=== PATIENT | male | born 1965 | race Caucasian/White ===

== ENCOUNTER 2018-05-10 08:03 | Emergency (ER) | payer BC, SELFPAY ==
[2018-05-10 08:07] VITALS: BP 110/65; PULSE 79; RESP 15; TEMP 37; O2SAT 99
--- NOTE | 2018-05-10 08:26 | DI.RAD_ITS ---
SYMPTOM/DIAGNOSIS: RT MIDDLE TOE BRUISE, PAIN RIGHT FOOT: Three views were obtained. No fracture is seen.
--- NOTE | 2018-05-10 08:27 | W.ED.GENAD ---
Discharge Plan Disposition Patient Disposition: HOME Condition: Good Discharge Details Chief Complaint: Orthopedic Clinical Impression: Bruise, Fracture of toe Primary Care Provider: None,None ED Provider: Denny Santiago Home Meds and New Rx's Prescriptions: No Action No Known Home Meds RF: 0 Discharge Instructions Instructions: Toe Fracture (ED), Contusion in Adults (ED) Referrals: [facility] Emergency Dept. [Outside] - Return if symptoms worsen Discharge Data Discharge Date/Time-TO BE ENTERED AT DEPARTURE: 05/10/18 09:21 Medical Decision Making Differential would be bruising from friction or burn from the warmers, paronychia, banuelos bite, cellulitis, gout, fracture? I am leaning toward paronychia. We will x-ray to confirm no fracture. I reviewed x-rays with Lance. I disagree with V-rad and advised to treat as fracture. He is off for the week and plans to rest and elevate the toe. Advised to return if signs of infections develop. Imaging Data Radiologic Study: Imaging: X-Ray My impression: Fracture to medial corner of PIP of the third toe. Radiologist's impression: v-rad: No acute findings. HPI General Date/Time Provider Initiated Documentation: 05/10/18 08:26. History of Present Illness 52 year old M presents to the emergency department with the chief complaint of toe pain, HPI Narrative: 52 y/o male here with c/o right toe pain and discoloration. He noticed right middle toe pain last night. He was out hunting yesterday but was plenty warm with quality socks and toe warmers. Denies any trauma. is concerned about infection. This morning discolored blue and painful to touch. Denies any history of gout. Related Data Home Medications Medication Instructions Recorded Confirmed Unknown [No Known Home Meds] 05/10/18 05/10/18 Allergies Allergy/AdvReac Type Severity Reaction Status Date / Time No Known Allergies Allergy Unverified 05/10/18 08:12 General Stated Complaint: Orthopedic SANDRA: 4 Review of Systems Musculoskeletal Comments: Right toe pain PFSH Social History Smoking/Tobacco Use Status: Never Exam Const General: cooperative, healthy appearing, comfortable and no acute distress HENMT Head: normal to inspection Ears: hearing grossly normal bilaterally and external ears normal General nose exam: external nose normal and nares normal Eyes General: appearance normal, both eyes and all related structures Neck Neck: normal visual inspection Extrem General: full ROM, normal capillary refill and no calf tenderness Right lower extremity: full ROM (with pain to right middle toe. ), normal capillary refill, ankle Details: normal to inspection; no tenderness and no swelling and foot Details: normal capillary refill, abnormal to inspection Details: other (bruising at the distal end of the third metatarsal and extends down the toe. ) and ecchymosis (third or middle toe) Ankle/foot/toe images: 1. Dorsal side of toe is bruised. Bruising starts at middle section of the phalanx. Distal nail and tip of toe is normal color. At the base of the toe nail their is a circular blister that is intact. No redness. It is painful to touch. No drainage. Psych Appearance: grossly normal Mental Status: mental status grossly normal Speech and Movement: speech and movement normal Mood: congruent mood Affect: normal affect Attitude: cooperative Thought Process: normal Insight: insight good Judgment: judgment good Course Vital Signs Temperature 37 C 05/10/18 08:07 Pulse 79 05/10/18 08:07 Respiratory Rate 15 05/10/18 08:07 Blood Pressure 110/65 05/10/18 08:07 Pulse Oximetry 99 05/10/18 08:07 Temperature 37 C 05/10/18 08:07 Temperature Source Temporal Artery Scan 05/10/18 08:07 Pulse 79 05/10/18 08:07 Respiratory Rate 15 05/10/18 08:07 Respiratory Effort Non-Labored 05/10/18 08:11 Blood Pressure 110/65 05/10/18 08:07 Blood Pressure Position Sitting 05/10/18 08:07 Pulse Oximetry 99 05/10/18 08:07 Oxygen Delivery Method Room Air 05/10/18 08:07 Oxygen Flow Rate 0 05/10/18 08:07 Pain Level 4 05/10/18 08:12
--- NOTE | 2018-05-10 08:41 | ED.GENADUL_ITS ---
Discharge Plan Disposition Patient Disposition: HOME Condition: Good Discharge Details Chief Complaint: Orthopedic Clinical Impression: Bruise, Fracture of toe Primary Care Provider: None,None ED Provider: Denny Santiago Home Meds and New Rx's Prescriptions: No Action No Known Home Meds RF: 0 Discharge Instructions Instructions: Toe Fracture (ED), Contusion in Adults (ED) Referrals: [facility] Emergency Dept. [Outside] - Return if symptoms worsen Discharge Data Discharge Date/Time-TO BE ENTERED AT DEPARTURE: 05/10/18 09:21 Medical Decision Making Differential would be bruising from friction or burn from the warmers, paronychia, banuelos bite, cellulitis, gout, fracture? I am leaning toward paronychia. We will x-ray to confirm no fracture. I reviewed x-rays with Lance. I disagree with V-rad and advised to treat as fracture. He is off for the week and plans to rest and elevate the toe. Advised to return if signs of infections develop. Imaging Data Radiologic Study: Imaging: X-Ray My impression: Fracture to medial corner of PIP of the third toe. Radiologist's impression: v-rad: No acute findings. HPI General Date/Time Provider Initiated Documentation: 05/10/18 08:26 . History of Present Illness 52 year old M presents to the emergency department with the chief complaint of toe pain, HPI Narrative: 52 y/o male here with c/o right toe pain and discoloration. He noticed right middle toe pain last night. He was out hunting yesterday but was plenty warm with quality socks and toe warmers. Denies any trauma. is concerned about infection. This morning discolored blue and painful to touch. Denies any history of gout. Related Data Home Medications Medication Instructions Recorded Confirmed Unknown [No Known Home Meds] 05/10/18 05/10/18 Allergies Allergy/AdvReac Type Severity Reaction Status Date / Time No Known Allergies Allergy Unverified 05/10/18 08:12 General Stated Complaint: Orthopedic SANDRA: 4 Review of Systems Musculoskeletal Comments: Right toe pain PFSH Social History Smoking/Tobacco Use Status: Never Exam Const General: cooperative, healthy appearing, comfortable and no acute distress HENMT Head: normal to inspection Ears: hearing grossly normal bilaterally and external ears normal General nose exam: external nose normal and nares normal Eyes General: appearance normal, both eyes and all related structures Neck Neck: normal visual inspection Extrem General: full ROM, normal capillary refill and no calf tenderness Right lower extremity: full ROM (with pain to right middle toe. ), normal capillary refill, ankle Details: normal to inspection; no tenderness and no swelling and foot Details: normal capillary refill, abnormal to inspection Details: other (bruising at the distal end of the third metatarsal and extends down the toe. ) and ecchymosis (third or middle toe) Ankle/foot/toe images: 2 1. Dorsal side of toe is bruised. Bruising starts at middle section of the phalanx. Distal nail and tip of toe is normal color. At the base of the toe nail their is a circular blister that is intact. No redness. It is painful to touch. No drainage. Psych Appearance: grossly normal Mental Status: mental status grossly normal Speech and Movement: speech and movement normal Mood: congruent mood Affect: normal affect Attitude: cooperative Thought Process: normal Insight: insight good Judgment: judgment good Course Vital Signs Temperature 37 C 05/10/18 08:07 Pulse 79 05/10/18 08:07 Respiratory Rate 15 05/10/18 08:07 Blood Pressure 110/65 05/10/18 08:07 Pulse Oximetry 99 05/10/18 08:07 Temperature 37 C 05/10/18 08:07 Temperature Source Temporal Artery Scan 05/10/18 08:07 Pulse 79 05/10/18 08:07 Respiratory Rate 15 05/10/18 08:07 Respiratory Effort Non-Labored 05/10/18 08:11 Blood Pressure 110/65 05/10/18 08:07 Blood Pressure Position Sitting 05/10/18 08:07 Pulse Oximetry 99 05/10/18 08:07 Oxygen Delivery Method Room Air 05/10/18 08:07 Oxygen Flow Rate 0 05/10/18 08:07 Pain Level 4 05/10/18 08:12
--- NOTE | 2018-05-10 08:56 | DI.VRAD_ITS ---
EXAM: XR Right Foot Complete, 3 or more Views EXAM DATE/TIME: 05/10/2018 8:28 AM CLINICAL HISTORY: 52 years old, male; Signs and symptoms; Other: Right middle toe brusied and p; Patient HX: Right middle toe brused and painful TECHNIQUE: XR Right foot 3 or more views. COMPARISON: No relevant prior studies available. FINDINGS: Bones/joints: Normal.There is no evidence of acute fracture.There is no evidence of malalignment or dislocation. Soft tissues: Normal. IMPRESSION: No acute findings. Dictated and Authenticated by: Elo Rousseau MD. Ordering:DEE PALACIOS MD
== END 2018-05-10 09:21 | disposition home or self-care (01) ==
PROVIDERS: Emergency Provider Nurse Practitioner Family
DX: S92.521A Displaced fracture of middle phalanx of right lesser toe(s), initial encounter for closed fracture (principal); X58.XXXA Exposure to other specified factors, initial encounter
CPT/HCPCS: 28510; 73630

== ENCOUNTER 2023-12-31 07:30 | Emergency (ER) | payer BC, SELFPAY ==
[2023-12-31 07:39] VITALS: BP 113/67; PULSE 77; RESP 20; TEMP 36; O2SAT 97
--- NOTE | 2023-12-31 07:51 | W.ED.GENAD ---
Discharge Plan Disposition Patient Disposition: Home Condition: Good Discharge Details Clinical Impression: Hand laceration Primary Care Provider: None,None ED Provider: Rachel Berrios Home Meds and New Rx's Prescriptions: No Action No Known Home Meds Discharge Instructions Instructions: Laceration Repair With Stitches ED, Wound Care ED Additional Instructions: Please keep wound clean, dry, covered. Please keep current dressing on until tomorrow to allow for clotting and keep wound clean. You may use Tylenol and ibuprofen as needed for discomfort. Please wash with running water and soap, after patting dry and may apply Band-Aid. Please continue to maxi tape the last 2 digits to help prevent excess pressure on this digit. Monitor wound for signs of infection clued redness, warmth, drainage, increased pain, fever/chills. Please return in 7 days for reevaluation and removal of stitches. Discharge Data Discharge Date/Time-TO BE ENTERED AT DEPARTURE: 12/31/23 08:54 HPI General Date/Time Provider Initiated Documentation: 12/31/23 07:50. Limitations to Documentation: no limitations. Information obtained by: patient and RN notes reviewed. History of Present Illness 58 year old M presents to the emergency department with the chief complaint of right hand laceration, described as moderate, Quality is described as aching, and is localized to the right and upper extremity. Patient reports no radiation. Patient started experiencing this minute(s) and it has been constant. No relieving factors improve symptom(s), No exacerbating factors reported . Patient notes no other symptoms.. Patient did receive the following treatments prior to arrival, other (washed wound right after) Related Data Home Medications Medication Instructions Recorded Confirmed Unknown [No Known Home Meds] 05/10/18 12/31/23 Allergies Allergy/AdvReac Type Severity Reaction Status Date / Time No Known Allergies Allergy Unverified 12/31/23 07:43 General Stated Complaint: Laceration SANDRA: 4 Review of Systems Constitutional Constitutional: Reports as per HPI, Denies chills and Denies fever(s) Musculoskeletal Musculoskeletal: Reports as per HPI Integumentary/Breasts Skin/Breast: Reports as per HPI Neurologic Neurologic: Reports as per HPI, Denies sensory deficit and Denies paresthesias Exam Const General: cooperative, healthy appearing, comfortable, no acute distress and well developed Nutritional Appearance: average body habitus and well nourished Orientation: alert and awake Resp Effort & Inspection: normal respiratory effort, able to speak in complete sentences and no respiratory distress Cardio Rate: regular rate Rhythm: regular rhythm Skin Trauma: laceration (right hand) Neuro General: patient alert and patient awake Cognition: normal cognition Speech: speech normal Gait: normal gait Sensory Exam: no sensory deficits noted Extrem Hand/finger images: 1. Area of laceration. Small amount of active bleeding. No pulsatile bleeding. Full range of motion of all of his fingers and wrist. Sensation is intact distal to the injury. I am able to visualize a vessel but this does appear to be intact and soft tissues able to easily be moved over this. No evidence of deep structure involvement such as ligamentous injury, bony abnormality. Patient is able to extend against resistance in the fourth and fifth digits. No evidence of injury elsewhere. Course Vital Signs Vital signs: Vital Signs Temperature 36.0 C L 12/31/23 07:39 Pulse 77 12/31/23 07:39 Respiratory Rate 20 12/31/23 07:39 Blood Pressure 113/67 12/31/23 07:39 Pulse Oximetry 97 12/31/23 07:39 Temperature 36.0 C L 12/31/23 07:39 Temperature Source Skin 12/31/23 07:39 Pulse 77 12/31/23 07:39 Respiratory Rate 20 12/31/23 07:39 Blood Pressure 113/67 12/31/23 07:39 Blood Pressure Position Sitting 12/31/23 07:39 Pulse Oximetry 97 12/31/23 07:39 Oxygen Delivery Method Room Air 12/31/23 07:39 Oxygen Flow Rate 0 12/31/23 07:39 Pain Level 3 12/31/23 07:39 Procedures Laceration Laceration 1: Site: hand Side (If applicable): right Size (cm): 2.5 Description: linear Depth: simple, single layer Local anesthetic: Lidocaine 1% and with Epi Amount of anesthesia used (mL): 5 Pre-repair: wound explored, irrigated extensively and deep structures intact Skin layer closed with: nylon Size (cm): 5-0 Number of sutures: 3 Technique: simple, interrupted and horizontal mattress Subcutaneous layer closed with: vicryl Size: 4-0 Number of sutures: 2 Technique: simple, interrupted Medical Decision Making Patient is a pleasant [id number] 58-year-old male presenting today with chief complaint of laceration to the right hand which she sustained this morning while trying to set a mouse trap under his stove. Reports that he caught his hand on the stove on the mouse trap deployed causing laceration along the ulnar side of the dorsal hand. He denies other injury at the time of the incident. Denies any numbness or tingling. Unknown tetanus status. States that stove is new and is clean. Reports that he immediately cleaned the area prior to coming here. Able to determine tetanus was completed in 2020, will not give any further today. On exam, patient appears nontoxic. He is resting comfortably in no acute distress. Hemodynamically stable. He has a 2.5 cm laceration along the ulnar side of the right hand on the dorsal aspect. Small amount of active bleeding. This does appear to be more venous. Patient has been washed by nursing staff as well. Patient is neurovascularly intact. Able to extend against resistance in the fourth and fifth digits. Sensation is intact. No evidence of deep structure involvement. Patient and I discussed wound management. I do feel that suture closure is warranted. We did discuss imaging and patient does not feel that he would have struck the hand hard enough to cause any bony abnormality and given how he injured it, no evidence to suggest foreign body retained. We discussed were/benefits as well as expected procedural steps associated with suture closure as well as alternative options. He voiced understanding and wished to proceed. Please see procedure note. Wound was copiously irrigated, explored to base in a bloodless field with no foreign body or debris appreciated. Deep sutures were placed to pull a soft tissue over the vessel. Skin was then closed separately. Patient tolerated procedure well after anesthetic with lidocaine and epi was applied. Patient I discussed wound care. Given the location, he does put some strain on the wound when he forward flexes his fingers. For this reason, we will maxi tape the fourth and fifth digits together to help limit the excess pressure applied to the laceration. A more bulky dressing was applied at this time as the patient did have some bleeding after suture placement. This was quite minimal bleeding and expected given placement of the sutures. We discussed return precautions, in particular signs and symptoms of infection. Advised patient to return for suture removal and wound reevaluation. All his questions and concerns were addressed and he is agreement this plan. Quality:SDOH Health Related Social Needs: No Data to Display [facility] All Active Problems (Updated 12/31/23 @ 08:36 by LACIE Pratt) Hand laceration (Acute) Social History Smoking/Tobacco Use Status: Never Smoking risk assessment performed?: Yes Alcohol Intake: current Alcohol Intake frequency: holidays/special occasions only Drug use: Never Substance use type: does not use Do you feel safe in your relationship?: Yes
[2023-12-31 08:54] VITALS: BP 113/67; PULSE 77; RESP 20; TEMP 36; O2SAT 97
== END 2023-12-31 08:54 | disposition home or self-care (01) ==
LOC: ER 08:51
PROVIDERS: Emergency Provider Physician Assistant
DX: S61.411D Laceration without foreign body of right hand, subsequent encounter (principal); W26.8XXD Contact with other sharp object(s), not elsewhere classified, subsequent encounter

== ENCOUNTER 2024-01-07 07:13 | Emergency (ER) | payer BC, SELFPAY ==
[2024-01-07 07:19] VITALS: BP 96/72; PULSE 78; RESP 12; TEMP 37; O2SAT 100
--- NOTE | 2024-01-07 07:21 | ED.GENADUL_ITS ---
Discharge Plan Disposition Patient Disposition: Home Condition: Good Discharge Details Clinical Impression: Visit for suture removal Primary Care Provider: None,None ED Provider: Ayan Brantley Home Meds and New Rx's Prescriptions: No Action No Known Home Meds Discharge Instructions Instructions: Stitches Removal Additional Instructions: Your laceration looks well-healed. Continue to keep it clean and covered as you have been. Watch for any signs of infection and return to ED or follow-up with primary care if increasing redness, swelling, pain. HPI General Mode of arrival: ambulatory . Date/Time Provider Initiated Documentation: 01/07/24 07:21 . Limitations to Documentation: no limitations . Information obtained by: patient . HPI Narrative: Patient presenting for suture removal. Patient sustained laceration to his hand last week. He has no complaints and has been cleaning it once or twice a day and keeping it covered. Related Data Home Medications ?Medication ?Instructions ?Recorded ?Confirmed Unknown [No Known Home Meds] 05/10/18 12/31/23 Allergies Allergy/AdvReac Type Severity Reaction Status Date / Time No Known Allergies Allergy Unverified 12/31/23 07:43 General Stated Complaint: SutureRem SANDRA: 4 Review of Systems Narrative: Per HPI Exam Narrative Exam Narrative: Const: WDWN male in NAD. VS per triage. HEENT: NC/AT. Normal facial exam. Neck: Supple. Trachea midline. Lungs: Normal respiratory effort. Neuro: A+O x 3. Normal speech, mentation, gait. Cranial nerves II - XII grossly intact. No gross motor or sensory deficit. Skin: Healed laceration back of right hand with no sign of infection. Course Vital Signs Vital signs: Vital Signs Temperature 98.6 F 01/07/24 07:19 Pulse 78 01/07/24 07:19 Respiratory Rate 12 01/07/24 07:19 Blood Pressure 96/72 L 01/07/24 07:19 Pulse Oximetry 100 01/07/24 07:19 Temperature 98.6 F 01/07/24 07:19 Temperature Source Skin 01/07/24 07:19 Pulse 78 01/07/24 07:19 Respiratory Rate 12 01/07/24 07:19 Respiratory Effort Normal, Non-Labored 01/07/24 07:20 Blood Pressure 96/72 L 01/07/24 07:19 Blood Pressure Position Sitting 01/07/24 07:19 Pulse Oximetry 100 01/07/24 07:19 Oxygen Delivery Method Room Air 01/07/24 07:19 Oxygen Flow Rate 0 01/07/24 07:19 Pain Level 1 01/07/24 07:19 Comment states BP usually runs slow. 01/07/24 07:19 Medical Decision Making Sutures removed by me without difficulty. Band-Aid applied to keep covered. Patient to continue wound care as he has been doing till completely healed. Return precautions provided. PFSH All Active Problems (Updated 01/07/24 @ 07:30 by Ayan Brantley MD) Visit for suture removal (Acute) Hand laceration (Acute) Social History Smoking/Tobacco Use Status: Never Smoking risk assessment performed?: Yes Alcohol Intake: current Alcohol Intake frequency: holidays/special occasions only Drug use: Never Substance use type: does not use Do you feel safe in your relationship?: Yes
== END 2024-01-07 07:32 | disposition home or self-care (01) ==
PROVIDERS: Emergency Provider Emergency Medicine
DX: Z48.02 Encounter for removal of sutures (principal)